=== PATIENT | female | born 1965 | race Caucasian/White ===

== ENCOUNTER 2020-08-25 09:25 | Day surgery (SDC) | payer OTHER ==
[~2020-08-25 09:25] MED LIST: AVAPRO150 MG PO; DICY10CA PO
== END 2020-08-25 16:45 | disposition home or self-care (01) ==
LOC: AMB-ENDOS 09:25
PROVIDERS: ATTEND Colon & Rectal Surgery
DX: K62.89 Other specified diseases of anus and rectum (principal); K64.8 Other hemorrhoids; Z20.822 Contact with and (suspected) exposure to COVID-19; Z12.11 Encounter for screening for malignant neoplasm of colon

== ENCOUNTER 2020-10-07 12:00 | Inpatient (IN) | payer OTHER ==
[~2020-10-07] VITALS: Ht 157.5 cm; Wt 85.7 kg
[2020-10-12] MEDS ORDERED: AVALIDE 300-121 EACH PO (14:03)
[2020-10-12] MEDS ORDERED: WELLBUT PO (14:04)
[2020-10-12] MEDS ORDERED: AMAR PO (14:04)
[2020-10-18] MEDS ORDERED: GLIMEPIRIDE1 MG (08:04)
[2020-10-18] MEDS ORDERED: WELLBUTRIN SR100 MG (08:04)
== END 2020-10-21 16:10 | disposition home or self-care (01) | DRG 330 ==
LOC: O/R 10-18 05:50 → SURH 10-18 05:50
PROVIDERS: ADMIT Colon & Rectal Surgery; ATTEND Colon & Rectal Surgery
PROC: 0DTP4ZZ Resection of Rectum, Percutaneous Endoscopic Approach (ICD-10-PCS; 2020-10-18)
PROC: 0WQF4ZZ Repair Abdominal Wall, Percutaneous Endoscopic Approach (ICD-10-PCS; 2020-10-18)
PROC: 0DJD8ZZ Inspection of Lower Intestinal Tract, Via Natural or Artificial Opening Endoscopic (ICD-10-PCS; 2020-10-18)
PROC: 0DBN4ZZ Excision of Sigmoid Colon, Percutaneous Endoscopic Approach (ICD-10-PCS; principal; 2020-10-18 07:00)
DX: K57.20 Diverticulitis of large intestine with perforation and abscess without bleeding (principal); K43.0 Incisional hernia with obstruction, without gangrene; E11.65 Type 2 diabetes mellitus with hyperglycemia; Z79.4 Long term (current) use of insulin

== ENCOUNTER 2021-08-19 05:44 | Day surgery (SDC) | payer OTHER ==
[~2021-08-19 05:44] MED LIST changes: +AMAR PO; +AVALIDE 300-121 EACH PO; +GLIMEPIRIDE1 MG; +PROBIOT PO; +WELLBUT PO; +WELLBUTRIN SR100 MG; +WELLBUTRIN SR150 MG PO
== END 2021-08-19 12:53 | disposition home or self-care (01) ==
LOC: CIR.AMB 05:44
PROVIDERS: ATTEND Colon & Rectal Surgery
DX: R15.9 Full incontinence of feces (principal); Z20.822 Contact with and (suspected) exposure to COVID-19; I10 Essential (primary) hypertension; Z71.6 Tobacco abuse counseling; F17.210 Nicotine dependence, cigarettes, uncomplicated; J45.909 Unspecified asthma, uncomplicated; E11.9 Type 2 diabetes mellitus without complications; Z79.84 Long term (current) use of oral hypoglycemic drugs
CPT/HCPCS: 64581; 95971; C1778

== ENCOUNTER 2021-09-02 05:59 | Day surgery (SDC) | payer OTHER ==
[~2021-09-02] VITALS: Ht 165.1 cm; Wt 76.2 kg
== END 2021-09-02 10:25 | disposition home or self-care (01) ==
LOC: CIR.AMB 05:59
PROVIDERS: ATTEND Colon & Rectal Surgery
DX: R15.9 Full incontinence of feces (principal); R32 Unspecified urinary incontinence; Z20.822 Contact with and (suspected) exposure to COVID-19; I10 Essential (primary) hypertension; Z86.010 Personal history of colon polyps

== ENCOUNTER 2024-08-18 06:31 | Day surgery (SDC) | payer OTHER ==
[2024-08-14 11:32] VITALS: BP 143/80
[~2024-08-18] VITALS: Ht 157.5 cm; Wt 67.1 kg
[~2024-08-18 06:31] MED LIST changes: +GLIMEPIRIDE4 MG; +TRAZODONE 100 MG; +lexapro
[2024-08-18] MEDS ORDERED: CEFAZOLIN SODIUM 1,000 MG VIAL IV ONE (10:30)
[2024-08-18] MEDS ORDERED: BUPIVACAINE HCL 30 ML VIAL IJ ONE (10:30)
[2024-08-18] MEDS ORDERED: LIDOCAINE HCL 1%/EPINEPHRINE 20ML VIAL IJ ONE (10:30)
== END 2024-08-18 13:50 | disposition home or self-care (01) ==
LOC: CIR.AMB 06:31
PROVIDERS: ATTEND Colon & Rectal Surgery
DX: R15.9 Full incontinence of feces (principal); T85.193A Other mechanical complication of implanted electronic neurostimulator, generator, initial encounter; R63.4 Abnormal weight loss